=== PATIENT | female | born 1985 | race Caucasian/White ===

== ENCOUNTER 2019-07-18 18:08 | Emergency (ER) | payer BC ==
[~2019-07-18] VITALS: Ht 160 cm; Wt 80.3 kg
[2019-07-18] MEDS ORDERED: PRENATAL + DHA1 EAC1 (20:07)
[2019-07-18] MEDS ORDERED: SYNTHROID125 MCG (20:07)
== END 2019-07-19 00:27 | disposition home or self-care (01) ==
LOC: ER 18:08
DX: O46.8X1 Other antepartum hemorrhage, first trimester (principal); Z34.81 Encounter for supervision of other normal pregnancy, first trimester

== ENCOUNTER 2019-12-27 11:17 | Inpatient (IN) | payer BC ==
[~2019-12-27] VITALS: Ht 160 cm; Wt 89.8 kg
[~2019-12-27 11:17] MED LIST: PRENATAL + DHA1 EAC1; SYNTHROID125 MCG
[2020-01-18] MEDS ORDERED: LEVO-T150 MCG PO (11:47)
[2020-01-18] MEDS ORDERED: OBSTETRIX ONE1 EACH PO (11:48)
[2020-01-18] MEDS ORDERED: VALACYCLOVIR1000 MG PO (11:48)
== END 2020-01-19 11:37 | disposition home or self-care (01) | DRG 807 ==
LOC: OB/GYN 01-03 10:15 → LDR 01-17 09:13 → OB/GYN 01-17 15:29
PROVIDERS: ADMIT Obstetrics & Gynecology Maternal & Fetal Medicine
PROC: 10E0XZZ Delivery of Products of Conception, External Approach (ICD-10-PCS; principal; 2020-01-17)
PROC: 0UQMXZZ Repair Vulva, External Approach (ICD-10-PCS; 2020-01-17)
PROC: 4A1HXCZ Monitoring of Products of Conception, Cardiac Rate, External Approach (ICD-10-PCS; 2020-01-17)
DX: O70.0 First degree perineal laceration during delivery (principal); Z37.0 Single live birth; O36.63X1 Maternal care for excessive fetal growth, third trimester, fetus 1; Z3A.39 39 weeks gestation of pregnancy; Z22.330 Carrier of Group B streptococcus